=== PATIENT | male | born 1960 | race Two or more races ===

== ENCOUNTER 2020-07-18 15:01 | Emergency (ER) | payer SELFPAY ==
[~2020-07-18] VITALS: Ht 170.2 cm; Wt 99.8 kg
[2020-07-18 16:46] VITALS: BP 142/98
== END 2020-07-18 17:27 | disposition home or self-care (01) ==
LOC: ER 15:01
DX: U07.1 COVID-19 (principal); J20.8 Acute bronchitis due to other specified organisms; E11.9 Type 2 diabetes mellitus without complications
CPT/HCPCS: 36415; 71045; 87426